=== PATIENT | female | born 1985 | race Caucasian/White ===

== ENCOUNTER 2019-06-29 00:59 | Day surgery (SDC) | payer OTHER, SELFPAY ==
[2019-06-15 13:08] VITALS: BMI 26.1
[2019-06-29] VITALS (9 sets, daily range): BP systolic 103–113; BP diastolic 63–76; PULSE 66–80; RESP 12–16; TEMP 36.2–37.1; O2SAT 93–99
[2019-06-29] MEDS: LACTATED RINGERS 1,000 ML 30 ML IV CONT ×2 (06:40→09:36)
--- NOTE | 2019-06-29 06:50 | WPDANESEPPF ---
Anes - Initial Pre Proc Eval Procedure: Operation Date: 06/29/19 07:30 Proposed Procedures p Bilateral Breast Implant Exchange - Kolby Guzman MD Date/Time: 06/29/19 06:50 Surgeon: Kolby Guzman MD Pre Op Diagnosis: Right Breast Implant Rupture Patient Data Age: 34 Gender: F Height: 5 ft 2.5 in Weight: 65.9 kg Allergies Allergy/AdvReac Type Severity Reaction Status Date / Time levofloxacin Allergy Severe Anaphylaxis Verified 06/29/19 06:24 Penicillins Allergy Severe Anaphylaxis Verified 06/29/19 06:24 adhesive tape AdvReac Mild BLISTERS Verified 06/29/19 06:24 Home Medications Medication Instructions Recorded Confirmed Type ascorbic acid (vitamin C) 500 mg PO DAILY 06/15/19 06/29/19 History cholecalciferol (vitamin D3) 2,000 unit PO DAILY 06/15/19 06/29/19 History multivitamin with minerals 1 tablet PO DAILY 06/15/19 06/29/19 History [Hair,Skin and Nails] Patient hx anesthesia problems: none Family hx anesthesia problems: none PMFSH Past Medical History Medical History Overweight Smoking hx Surgical History Surgical History (Updated 06/29/19 @ 06:50 by Jarrett Tirado MD) H/O breast augmentation Social History Social History Smoking status: Former smoker Alcohol intake: current Anes - Eval Final PreProcedure Day of Procedure 06/29/19 06:50 Patient weight: overweight Heart: regular rate and rhythm Lungs: clear to auscultation Airway: Mallampati scale class II Neurological: alert and oriented Last oral intake: >/= 8 hours ASA classification: II Emergent: no Anesthetic plan: proceed Anesthesia type and monitoring: general LMA Informed Consent: The patient's anesthetic plan and its attendant risks and benefits were discussed with the patient/family/POA. Questions were solicited and answers provided to the satisfaction of the patient/family/POA.
--- NOTE | 2019-06-29 06:58 | WPDHPUPDATE1 ---
History and Physical Update Update Date/Time: 06/29/19 06:58 History and Physical has been reviewed, including an updated exam of the patient. There are NO changes in the patient's condition. Risks, benefits, and alternatives have been discussed and questions answered. Patient agrees to proceed with procedure.
[2019-06-29 07:14] LABS: Urine Cotinine POSITIVE
[2019-06-29] MEDS: CLINDAMYCIN 900 MG/NS 50 ML 900 MG/50 ML PIGGYBACK 50 MG IVPB (07:25)
[2019-06-29] MEDS: LIDO 1%/EPINEPHRINE 1:100,000 20 ML VIAL 40 ML INFILTRATE (08:22)
--- NOTE | 2019-06-29 09:34 | PM.PROC ---
Procedure Note - Detailed Date of procedure: 06/29/19 Pre-op diagnosis: Right Breast Implant Rupture Post-op diagnosis: same Procedure performed: Bilateral implant exchange Description of procedure: She was marked in the preoperative holding area with her verification. She did state that she wants this in the capsule to pathology. She understands she will get a charge for this. She was taken to the operating room placed supine on operating table. Anesthesia provided by anesthesiology and prepped and draped in standard sterile fashion. Surgical time-out was taken. 1% lidocaine and 0.25% Marcaine with epinephrine were used to provide a field block. A Tegaderm nipple shield was placed. Fifteen blade used to excise the previous scar. Dissection was continued down until the capsule was identified and elevated just superficial capsule removing as much of the capsule as possible. On the right breast implant was ruptured with a significant rupture with separation of the shell of. On the left implant was intact. On the right breast she also had some fullness in the 10 o'clock position from the nipple and included this thickened capsule area with the specimen for pathology. I did place triple antibiotic Betadine solution in the pockets while switching sides to allow this to have affect. I then copiously irrigated with 3 L of saline and bacitracin containing solution. Changed my gloves. We then created the subpectoral pocket in the appropriate dimensions release of the pectoralis major along its inferior border. Once released I irrigated copiously with saline solution. Verified strict hemostasis. Once it was clear there was good hemostasis I tacked the pectoralis major to the posterior breast using 2-0 Vicryl. I now irrigated with triple antibiotic and Betadine containing solution. Irrigated my hands. I placed Tegaderm so across the chest wall. The implant was introduced into the pocket uneventfully. I closed with 2-0 Vicryl followed by 3-0 Monocryl in a running subcuticular 4-0 Monocryl and tissue glue. Fluffs Elmer wrap surgical bra were placed. Patient was taken the PACU without difficulty. All instrument sponge counts were correct at the end of the case. Implants: Right REF# [id number] SN [id number] Left REF# [id number] SN [id number] Surgeon: Kolby Guzman MD Estimated blood loss (mL): 20 Drains: No Packing: No Pathology: yes (Bilateral capsules) Complications: No immediate complications Condition: stable Disposition: PACU Findings: Changed plane to submuscular. Capsules were thin except from the right breast around the 10 o'clock position there was an area of thickening. This was included in sent to pathology. The right breast implant was grossly ruptured with significant separation of the capsule. The left breast implant was intact.
[2019-06-29] MEDS: ONDANSETRON INJ 4 MG/2 ML VIAL IV PUSH (10:01)
== END 2019-06-29 11:25 | disposition home or self-care (01) ==
PROVIDERS: Visit Provider Surgery Plastic and Reconstructive Surgery
PROC: (CPT 19342; principal; 2019-06-29 07:30)
DX: T85.41XA Breakdown (mechanical) of breast prosthesis and implant, initial encounter (principal); Y83.8 Other surgical procedures as the cause of abnormal reaction of the patient, or of later complication, without mention of misadventure at the time of the procedure; N60.31 Fibrosclerosis of right breast; N60.41 Mammary duct ectasia of right breast; N60.21 Fibroadenosis of right breast; Z87.891 Personal history of nicotine dependence
CPT/HCPCS: 19371; 19325; 36415; 80307; 88304; 88305; J0131; J1100; J1580; J2250; J2405; J2704; J3010; J7030; J7120